=== PATIENT | male | born 1975 | race Caucasian/White ===

== ENCOUNTER 2018-12-15 01:16 | Emergency (ER) | payer SELFPAY ==
[~2018-12-15] VITALS: Ht 177.8 cm; Wt 77.3 kg
[2018-12-15 01:24] VITALS: Ht 177.8 cm; Wt 77.3 kg
[2018-12-15] MEDS ORDERED: HYDROCODONE-A1 UDTA2 PO (03:25)
[2018-12-15] MEDS ORDERED: KEFLEX500 MG PO (03:25)
[2018-12-15 03:48] VITALS: BP 138/87
== END 2018-12-15 03:50 | disposition home or self-care (01) ==
LOC: D.ER 01:16
DX: S51.812A Laceration without foreign body of left forearm, initial encounter (principal); W25.XXXA Contact with sharp glass, initial encounter

== ENCOUNTER 2019-04-19 19:20 | Emergency (ER) | payer SELFPAY ==
[~2019-04-19] VITALS: Ht 177.8 cm; Wt 79.5 kg
[~2019-04-19 19:20] MED LIST: HYDROCODONE-A1 UDTA2 PO; KEFLEX500 MG PO
[2019-04-19 19:30] VITALS: Ht 177.8 cm; Wt 79.5 kg
[2019-04-19] MEDS ORDERED: VIBRAMYCIN 100100 MG PO (21:40)
[2019-04-19] MEDS ORDERED: HYDROCODON-ACE1 EAC7 PO (21:40)
[2019-04-19 21:55] VITALS: BP 133/82
== END 2019-04-19 21:55 | disposition home or self-care (01) ==
LOC: D.ER 19:20
DX: L02.212 Cutaneous abscess of back [any part, except buttock and flank] (principal)

== ENCOUNTER 2019-05-30 15:47 | Emergency (ER) | payer SELFPAY ==
[~2019-05-30] VITALS: Ht 177.8 cm; Wt 79.5 kg
[~2019-05-30 15:47] MED LIST changes: +HYDROCODON-ACE1 EAC7 PO; +NORCO-7.51 TAB PO; +VIBRAMYCIN 100100 MG PO
[2019-05-30 15:53] VITALS: Ht 177.8 cm; Wt 79.5 kg
[2019-05-30 17:21] VITALS: BP 128/76
== END 2019-05-30 17:21 | disposition home or self-care (01) ==
LOC: D.ER 15:47
DX: Z48.02 Encounter for removal of sutures (principal)

== ENCOUNTER 2019-09-27 12:25 | Emergency (ER) | payer SELFPAY ==
[~2019-09-27] VITALS: Ht 177.8 cm; Wt 79.5 kg
[2019-09-27 12:42] VITALS: BP 123/72; Ht 177.8 cm; Wt 79.5 kg
[2019-09-27 13:15] LABS: BASOPHILS 0.3 % (0-2); EOSINOPHILS 2.2 % (0-7); HEMOGLOBIN 15.9 g/dL (13.5-17.5); IMMATURE GRANULOCYTES 0.1 % (0-5); LYMPHOCYTES 34.9 % (15-50); MCH 31.8 pg (26.0-34.0); MCHC 33.1 g/dL (31.0-37.0); MEAN PLATELET VOLUME 11.2 fL (7.4-10.4); MONOCYTES 14.2 % (2-11); NEUTROPHILS 48.3 % (40-80); PLATELET COUNT 192 10x3/uL (130-400); RDW 12.7 % (11.5-14.5); WBC 6.9 10x3/uL (4.8-10.8)
[2019-09-27 13:23] LABS: CALC OSMOLALITY 268 mosm/kg (275-300); CALCIUM 8.5 mg/dL (8.5-10.1); CARBON DIOXIDE 29.9 mmol/L (21.0-32.0); CHLORIDE - SERUM 102 mmol/L (98-107); GLUCOSE 93 mg/dL (74-106); SODIUM 134 mmol/L (136-145); UREA NITROGEN 15 mg/dL (7-18); eGFR NON AFRICAN AMERICAN 86 mL/min (90-120)
[2019-09-27 13:31] LABS: ALBUMIN 3.8 g/dL (3.4-5.0); ALKALINE PHOSPHATASE 60 U/L (30-120); ALT (SGPT) 23 U/L (10-68); AMYLASE - SERUM 54 U/L (25-115); LIPASE 78 U/L (73-393); PROTEIN - SERUM 7.1 g/dL (6.4-8.2)
[2019-09-27 13:32] LABS: TROPONIN-I < 0.017 ng/mL (0.000-0.060)
[2019-09-27 14:07] LABS: BILIRUBIN NEGATIVE (NEGATIVE); GLUCOSE NEGATIVE (NEGATIVE); KETONE NEGATIVE (NEGATIVE); NITRITE NEGATIVE (NEGATIVE); UROBILINOGEN NORMAL (NORMAL)
== END 2019-09-27 16:26 | disposition home or self-care (01) ==
LOC: D.ER 12:25
PROVIDERS: Family Medicine
DX: K40.90 Unilateral inguinal hernia, without obstruction or gangrene, not specified as recurrent (principal); D35.00 Benign neoplasm of unspecified adrenal gland; K59.00 Constipation, unspecified; R10.30 Lower abdominal pain, unspecified

== ENCOUNTER 2019-10-13 21:14 | Emergency (ER) | payer SELFPAY ==
[~2019-10-13] VITALS: Ht 177.8 cm; Wt 71.4 kg
[2019-10-13 21:30] VITALS: Ht 177.8 cm; Wt 71.4 kg
[2019-10-13] MEDS ORDERED: TYLENOL W/CODEI1 TAB (21:31)
[2019-10-13] MEDS ORDERED: METHOCARBAMOL500 MG PO (21:31)
[2019-10-13] MEDS ORDERED: HYDROCODON-ACE1 EA10 PO (21:53)
[2019-10-13 23:00] VITALS: BP 145/77
== END 2019-10-13 23:00 | disposition home or self-care (01) ==
LOC: D.ER 21:14
DX: G89.18 Other acute postprocedural pain (principal); R07.89 Other chest pain; M25.572 Pain in left ankle and joints of left foot

== ENCOUNTER 2019-11-27 03:13 | Emergency (ER) | payer SELFPAY ==
[~2019-11-27] VITALS: Ht 177.8 cm; Wt 79.5 kg
[~2019-11-27 03:13] MED LIST changes: +HYDROCODON-ACE1 EA10 PO; +METHOCARBAMOL500 MG PO; +TYLENOL W/CODEI1 TAB
[2019-11-27 03:19] VITALS: BP 162/86; Ht 177.8 cm; Wt 79.5 kg
[2019-11-27] MEDS ORDERED: DICLOFENAC SODI50 MG PO (03:26)
== END 2019-11-27 04:13 | disposition home or self-care (01) ==
LOC: D.ER 03:13
DX: M26.621 Arthralgia of right temporomandibular joint (principal)

== ENCOUNTER 2019-12-09 00:06 | Emergency (ER) | payer SELFPAY ==
[~2019-12-09] VITALS: Ht 177.8 cm; Wt 79.5 kg
[~2019-12-09 00:06] MED LIST changes: +DICLOFENAC SODI50 MG PO
[2019-12-09 00:10] VITALS: Ht 177.8 cm; Wt 79.5 kg
[2019-12-09] MEDS ORDERED: VISTARIL25 MG PO (00:48)
[2019-12-09] MEDS ORDERED: PENICILLIN V P500 MG PO (00:49)
[2019-12-09 01:04] VITALS: BP 149/89
[2019-12-09] MEDS ORDERED: HYDROCODON-ACE1 EAC7 PO (02:41)
== END 2019-12-09 01:04 | disposition home or self-care (01) ==
LOC: D.ER 00:06
DX: K08.89 Other specified disorders of teeth and supporting structures (principal); K02.9 Dental caries, unspecified; S02.5XXA Fracture of tooth (traumatic), initial encounter for closed fracture

== ENCOUNTER 2019-12-09 02:02 | Emergency (ER) | payer SELFPAY ==
[~2019-12-09] VITALS: Ht 177.8 cm; Wt 79.4 kg
[~2019-12-09 02:02] MED LIST changes: +PENICILLIN V P500 MG PO; +VISTARIL25 MG PO
[2019-12-09 02:24] VITALS: Ht 177.8 cm; Wt 79.4 kg
[2019-12-09] MEDS ORDERED: HYDROCODON-ACE1 EAC7 PO (02:41)
[2019-12-09 03:03] VITALS: BP 133/80
== END 2019-12-09 03:03 | disposition home or self-care (01) ==
LOC: D.ER 02:02
DX: K08.89 Other specified disorders of teeth and supporting structures (principal); S02.5XXA Fracture of tooth (traumatic), initial encounter for closed fracture